=== PATIENT | male | born 1980 | race Two or more races ===

== ENCOUNTER 2018-12-31 19:20 | Emergency (ER) | payer SELFPAY ==
[~2018-12-31] VITALS: Ht 180.3 cm; Wt 114.4 kg
[2018-12-31 20:05] VITALS: BP 150/90
--- NOTE | 2018-12-31 20:12 | NUR ---
TASK RN: DC EDUCATION PROVIDED, PT DEMONSTRATES UNDERSTANDING. PT AMBULATED STEADILY TO DC WITH RN AND FAMILY
== END 2018-12-31 20:14 | disposition home or self-care (01) ==
LOC: ED 20:08
DX: B35.6 Tinea cruris (principal)
CPT/HCPCS: 99283

== ENCOUNTER 2019-01-18 08:03 | Emergency (ER) | payer SELFPAY ==
[~2019-01-18] VITALS: Ht 177.8 cm; Wt 116.0 kg
[2019-01-18 08:16] VITALS: BP 148/101
== END 2019-01-18 09:15 | disposition home or self-care (01) ==
LOC: ED 09:09
DX: B37.42 Candidal balanitis (principal)
CPT/HCPCS: 99283

== ENCOUNTER 2019-04-27 18:23 | Emergency (ER) | payer SELFPAY ==
[~2019-04-27] VITALS: Ht 180.3 cm; Wt 113.3 kg
[2019-04-27 18:26] VITALS: BP 142/86
--- NOTE | 2019-04-27 19:07 | NUR ---
REPORT FROM ANDREW RAMEY
[2019-04-27 19:21] LABS: MICROSCOPIC NOT IND
[2019-04-27 19:32] LABS: CULTURE INDICATED? NO
== END 2019-04-27 19:48 | disposition home or self-care (01) ==
LOC: ED 19:42
DX: B37.42 Candidal balanitis (principal); F17.200 Nicotine dependence, unspecified, uncomplicated
CPT/HCPCS: 81003; 87491; 87591; 99283